=== PATIENT | male | born 1950 | race Caucasian/White ===

== ENCOUNTER 2017-05-30 13:15 | Day surgery (SDC) | payer OTHER ==
[~2017-05-30] VITALS: Ht 180.3 cm; Wt 78.0 kg
[~2017-05-30 13:15] MED LIST: ADVAIR HFA120 INHALA IH; ALEVE220 M2 PO; ALEVE220 MG PO; BENZONATATE100 MG PO; CLARITIN,ALAVAR10 MG PO; MAGIC MOUTHWASH PO; PROAIR HFA8.5 GM IH; PROTONIX40 MG PO; TESSALON PERLE100 MG PO; TESSALON200 MG PO; XYLOCAINE VISC100 ML MM
[2017-05-30 13:38] VITALS: BP 154/92
[2017-05-30 13:51] LABS: EOSINOPHIL (%) 1.5 % (0-5); EOSINOPHIL COUNT 0.1 K/uL (0-0.3); HEMATOCRIT 44.1 % (38.0-50.0); IMMATURE GRANULOCYTE (%) 0.6 % (0.0-0.7); IMMATURE GRANULOCYTE COUNT 0.1 K/uL; INSTRUMENT ABS NEUTROPHIL CT 5.5 K/uL; LYMPHOCYTE COUNT 1.8 K/uL (1.0-2.8); MCH 33.6 PG (29.0-34.0); MCHC 34.9 G/DL (30.0-36.0); MCV 96.1 FL (86-99); MEAN PLAT.VOLUME 10.3 uM^3 (9.0-12.4); MONOCYTE (%) 9.2 % (3-12); MONOCYTE COUNT 0.8 K/uL (0-0.8); NEUTROPHIL (%) 66.3 % (45-76); NEUTROPHIL COUNT 5.5 K/uL (1.8-6.4); PLATELET COUNT 280 K/uL (156-360); RBC DIS.WIDTH-CV 12.9 % (11.8-14.6); RBC DIS.WIDTH-SD 45.2 % (39-53); RED BLOOD COUNT 4.59 M/uL (4.00-5.50); WHITE BLOOD COUNT 8.3 K/uL (4.1-10.2)
[2017-05-30 13:58] LABS: PROTHROMBIN TIME 11.1 SEC (10.2-12.9)
[2017-05-30 14:11] LABS: ALKALINE PHOSPHATASE 58 IU/L (3-129); ANION GAP 9 MEQ/L (2-14); CHLORIDE 104 MEQ/L (99-109); GFR ESTIMATE (CALCULATED) > 59 mL/min/; GLUCOSE 88 mg/dL (70-99); POTASSIUM 3.9 MEQ/L (3.7-5.4); SAMPLE HEMOLYSIS CHECK 0; SAMPLE ICTERIC CHECK 0; SAMPLE LIPEMIA CHECK 0; SODIUM 139 MEQ/L (136-147); TOTAL BILIRUBIN 0.6 MG/DL (0.0-1.0); UREA NITROGEN (BUN) 12 mg/dL (9-23)
[2017-05-30] MEDS ORDERED: HYDROCODON-ACE1 EAC7 PO (15:28)
[2017-05-30] MEDS ORDERED: COLACE100 MG PO (15:28)
[2017-05-30 16:02] VITALS: BP 167/76
[2017-05-30 16:25] VITALS: BP 163/71
== END 2017-05-30 16:33 | disposition home or self-care (01) ==
LOC: SDC 13:15
PROVIDERS: Thoracic Surgery (Cardiothoracic Vascular Surgery)
PROC: 0JPT0WZ Removal of Totally Implantable Vascular Access Device from Trunk Subcutaneous Tissue and Fascia, Open Approach (ICD-10-PCS; principal; 2017-05-30)
DX: Z45.2 Encounter for adjustment and management of vascular access device (principal); Z85.118 Personal history of other malignant neoplasm of bronchus and lung; Z92.21 Personal history of antineoplastic chemotherapy; Z87.891 Personal history of nicotine dependence; K21.9 Gastro-esophageal reflux disease without esophagitis
CPT/HCPCS: 80053; 85025; 85610; J0690; J1885; J2250; J2405; J3010

== ENCOUNTER → 2018-04-02 | Outpatient (CLI) | payer OTHER ==
[~2018-04-02] MED LIST changes: +COLACE100 MG PO; +HYDROCODON-ACE1 EAC7 PO
== END | disposition home or self-care (01) ==
LOC: RAD 14:30
DX: K76.0 Fatty (change of) liver, not elsewhere classified (principal); N40.0 Benign prostatic hyperplasia without lower urinary tract symptoms; R60.0 Localized edema; M25.572 Pain in left ankle and joints of left foot; R26.2 Difficulty in walking, not elsewhere classified; M19.071 Primary osteoarthritis, right ankle and foot; M19.072 Primary osteoarthritis, left ankle and foot
CPT/HCPCS: 74176